=== PATIENT | female | born 1980 | race Caucasian/White ===

== ENCOUNTER 2017-05-16 10:42 | Emergency (ER) | payer OTHER ==
[~2017-05-16] VITALS: Ht 175.3 cm; Wt 66.7 kg
[~2017-05-16 10:42] MED LIST: ALBIPROI; ALBU90OI61 INH; AMIT10; AMYLIPPROE PO; BELPHEELB; BUSP15 PO; BUSP5 PO; Bactrim Ds Tab1 EACH PO; CARB200 PO; CEPH250A PO; CEPH500 PO; CHLO10; CHLO10 PO; CIPR500 PO; CITA20 PO; CLIN300 PO; CODACE30 PO; DICY20 PO; DIPATR PO; DIPH50 PO; FAMO20 PO; FAMO40 PO; FENUGREEK; HYCOSAMINE; HYDACE5 PO; HYDCOR10; HYOS.125 SL; HYOSCYAMIN; LORA1 PO; LORA2; MEDR10; MEDR10 PO; METERG.2 PO; METH10; MICRONOR; MILK THISTLE; MULVITMINE; MULVITMINE PO; NAPR220 PO; NAPR500; NAPR500 PO; NAPR550 PO; NORT10 PO; OMEP20ER PO; OXYACE5T PO; OXYACE7.5T PO; OXYB5; PANCREATIC ENZYME; PENNAL50 PO; PREVPAC PO; PROM25; PROM25 PO; PROM25S PR; PROM50S PR; PROM6.25SY PO; Percocet 10-321 EACH PO; Percocet 5-3251 EACH PO; QUET200; QUET25; RABE20; RANI150; RANI150 PO; RIFA300 PO; RXDIPATR PO; RXHYDACE PO; RXNAPNA550 PO; RXOXYACE PO; RXPROM25; RXPROM25 PO; RXSULTRIDS PO; RXTRAM50 PO; Roxicodone5 MG PO; SENN187; SERT50; SILSUL1TC TOP; SULTRIDS PO; TOMAZAPAM; TRAM50 PO; TRIM250 PO; [UNRECOGNIZED DRUG - OTHER]; [UNRECOGNIZED DRUG - OTHER]; [UNRECOGNIZED DRUG - OTHER]; [UNRECOGNIZED DRUG - OTHER] PO
[2017-05-16 11:29] LABS: BASOPHILS ABSOLUTE AUTO 0.04 K/mm3 (0.00-0.23); BASOPHILS PERCENT AUTO 1 % (0-2); EOSINOPHILS ABSOLUTE AUTO 0.24 K/mm3 (0.00-0.68); EOSINOPHILS PERCENT AUTO 3 % (0-6); Hemoglobin 13.4 g/dL (11.5-16.0); IMMATURE GRAN ABSOLUTE AUTO 0.01 K/mm3 (0.00-0.10); IMMATURE GRAN PERCENT AUTO 0 % (0-1); LYMPHOCYTES ABSOLUTE AUTO 2.39 K/mm3 (0.84-5.20); LYMPHOCYTES PERCENT AUTO 33 % (21-46); MONOCYTES ABSOLUTE AUTO 0.56 K/mm3 (0.16-1.47); MONOCYTES PERCENT AUTO 8 % (4-13); Mean Corpuscular HGB 30.9 pg (26.0-34.0); Mean Corpuscular HGB Conc 33.5 g/dL (31.5-36.5); Mean Corpuscular Volume 92 fL (80-100); Mean Platelet Volume 10.4 fL (9.1-12.4); NEUTROPHILS ABSOLUTE AUTO 4.01 K/mm3 (1.96-9.15); NEUTROPHILS PERCENT AUTO 55 % (41-73); Platelet Count 268 K/mm3 (150-400); RDW Coefficient Variation 12.5 % (11.7-14.2); RDW Standard Deviation 42.7 fL (35.1-46.3); Red Blood Cell Count 4.33 M/mm3 (3.80-5.20); White Blood Cell Count 7.25 K/mm3 (4.00-11.30)
[2017-05-16 11:55] LABS: Alanine Aminotransfer (ALT/SGP 90 U/L (12-78); Albumin, Blood 3.6 g/dL (3.4-5.0); Albumin/Globulin Ratio 0.9 (0.8-1.8); Alk Phos 67 U/L (50-136); Anion Gap 6 mmol/L (6-16); Aspartate Aminotrans (AST/SGOT 74 U/L (12-37); Bilirubin, Total 0.4 mg/dL (0.1-1.0); Blood Urea Nitrogen 6 mg/dL (8-24); CO2, Blood 29 mmol/L (21-32); Calcium, Blood 8.4 mg/dL (8.5-10.1); Chloride, Blood 103 mmol/L (98-108); Creatinine, Blood 0.67 mg/dL (0.40-1.00); Globulin, Blood 3.9 g/dL (2.2-4.0); Glomerular Filtration Rate >60 (60-); Glucose, Blood 74 mg/dL (70-99); Potassium, Blood 4.2 mmol/L (3.5-5.5); Sodium, Blood 138 mmol/L (136-145); Total Protein, Blood 7.5 g/dL (6.4-8.2)
[2017-05-16 13:18] LABS: U Amphetamine Screen Not Detected; U Barbituate Screen Not Detected; U Benzodiazapine Screen Not Detected; U Buprenorphine Screen Not Detected; U Cannabinoids Screen Not Detected; U Cocaine Screen Not Detected; U Methadone Screen DETECTED; U Methamphetamine Screen Not Detected; U Opiates Screen Not Detected; U Oxycodone Screen Not Detected; U Phencyclidine Screen Not Detected; U Propoxyphene Screen Not Detected
[2017-05-16] MEDS ORDERED: Norco 5-325 Ta1 EACH PO (15:17)
== END 2017-05-16 15:24 | disposition home or self-care (01) ==
LOC: ER 10:42
PROVIDERS: Emergency Medicine
DX: N83.202 Unspecified ovarian cyst, left side (principal); F17.200 Nicotine dependence, unspecified, uncomplicated; Z86.19 Personal history of other infectious and parasitic diseases; Z88.6 Allergy status to analgesic agent; Z88.8 Allergy status to other drugs, medicaments and biological substances; Z79.899 Other long term (current) drug therapy
CPT/HCPCS: 36415; 74177; 76830; 80053; 81000; 83690; 84703; 85025; 96374; 99284; J1885; Q9967

== ENCOUNTER 2017-06-10 10:37 | Day surgery (SDC) | payer OTHER ==
[~2017-06-10] VITALS: Ht 172.7 cm; Wt 67.0 kg
[~2017-06-10 10:37] MED LIST changes: +Norco 5-325 Ta1 EACH PO
[2017-06-10] MEDS ORDERED: METH40 PO (11:53)
[2017-06-10] MEDS ORDERED: Advair Hfa 230-12 GM (11:54)
[2017-06-10] MEDS ORDERED: COMBIVENT RESPIM4 GM INH (11:54)
== END 2017-06-10 16:05 | disposition home or self-care (01) ==
LOC: ORSCSDS 10:37
PROVIDERS: Obstetrics & Gynecology
PROC: 0U5F4ZZ Destruction of Cul-de-sac, Percutaneous Endoscopic Approach (ICD-10-PCS; principal; 2017-06-10 12:30)
DX: R10.2 Pelvic and perineal pain (principal); N80.3 Endometriosis of pelvic peritoneum; N73.6 Female pelvic peritoneal adhesions (postinfective); B19.20 Unspecified viral hepatitis C without hepatic coma; F17.210 Nicotine dependence, cigarettes, uncomplicated; Z79.899 Other long term (current) drug therapy
CPT/HCPCS: J0171; J0690; J3010; J7120

== ENCOUNTER 2017-06-25 14:06 | Emergency (ER) | payer OTHER ==
[~2017-06-25 14:06] MED LIST changes: +Advair Hfa 230-12 GM; +COMBIVENT RESPIM4 GM INH; +METH40 PO
== END 2017-06-25 14:14 | disposition left against medical advice (07) ==
LOC: ER 14:06
DX: Z53.21 Procedure and treatment not carried out due to patient leaving prior to being seen by health care provider (principal)

== ENCOUNTER → 2017-07-30 | Outpatient (CLI) | payer OTHER ==
[2017-08-11 10:19] LABS: Result SEE LABOUT RESULTS; Test Name FAT QUAL
== END | disposition home or self-care (01) ==
LOC: LAB SHORT 13:34 → LAB 13:34
PROVIDERS: Physician Assistant
DX: R10.84 Generalized abdominal pain (principal); E16.8 Other specified disorders of pancreatic internal secretion
CPT/HCPCS: 82705

== ENCOUNTER 2018-08-08 17:01 | Emergency (ER) | payer OTHER ==
[~2018-08-08] VITALS: Ht 175.3 cm; Wt 73.9 kg
[2018-08-08 18:41] LABS: BASOPHILS ABSOLUTE AUTO 0.03 K/mm3 (0.00-0.23); BASOPHILS PERCENT AUTO 0 % (0-2); Hematocrit 34.3 % (33.0-51.0); Hemoglobin 10.2 g/dL (11.5-16.0); Mean Corpuscular HGB 21.8 pg (26.0-34.0); Mean Corpuscular HGB Conc 29.7 g/dL (31.5-36.5); Mean Corpuscular Volume 73 fL (80-100); NRBC ABSOLUTE 0.02 K/mm3 (0.00-0.02); NRBC Auto 0.2 /100 WBC (0.0-0.2); RDW Coefficient Variation 17.7 % (11.7-14.2); RDW Standard Deviation 46.5 fL (35.1-46.3); Red Blood Cell Count 4.68 M/mm3 (3.80-5.20); White Blood Cell Count 8.64 K/mm3 (4.00-11.30)
[2018-08-08 18:45] LABS: EOSINOPHILS ABSOLUTE AUTO 0.01 K/mm3 (0.00-0.68); EOSINOPHILS PERCENT AUTO 0 % (0-6); IMMATURE GRAN ABSOLUTE AUTO 0.02 K/mm3 (0.00-0.10); IMMATURE GRAN PERCENT AUTO 0 % (0-1); LYMPHOCYTES ABSOLUTE AUTO 0.11 K/mm3 (0.84-5.20); LYMPHOCYTES PERCENT AUTO 1 % (21-46); MONOCYTES ABSOLUTE AUTO 0.06 K/mm3 (0.16-1.47); MONOCYTES PERCENT AUTO 1 % (4-13); Mean Platelet Volume 10.8 fL (9.1-12.4); NEUTROPHILS ABSOLUTE AUTO 8.41 K/mm3 (1.96-9.15); NEUTROPHILS PERCENT AUTO 97 % (41-73); Platelet Count 259 K/mm3 (150-400)
[2018-08-08 18:53] LABS: Alanine Aminotransfer (ALT/SGP 89 U/L (12-78); Albumin, Blood 3.1 g/dL (3.4-5.0); Albumin/Globulin Ratio 0.9 (0.8-1.8); Alk Phos 113 U/L (50-136); Anion Gap 9 mmol/L (6-16); Aspartate Aminotrans (AST/SGOT 227 U/L (12-37); Bilirubin, Total 2.2 mg/dL (0.1-1.0); Blood Urea Nitrogen 12 mg/dL (8-24); Bun/Creatinine Ratio 12.6 (12.0-20.0); CO2, Blood 22 mmol/L (21-32); Calcium, Blood 8.8 mg/dL (8.5-10.1); Chloride, Blood 106 mmol/L (98-108); Creatinine, Blood 0.95 mg/dL (0.40-1.00); Globulin, Blood 3.3 g/dL (2.2-4.0); Glomerular Filtration Rate >60 (60-); Glucose, Blood 115 mg/dL (70-99); Potassium, Blood 3.5 mmol/L (3.5-5.5); Sodium, Blood 137 mmol/L (136-145); Total Protein, Blood 6.4 g/dL (6.4-8.2)
[2018-08-08 19:49] LABS: Source, Urine Clean Catch
[2018-08-08 19:56] LABS: Appearance, Urine Cloudy (Clear); Blood, Urine 5+ (Neg); Color, Urine Amber (P-Yellow); Glucose Qualitative, Urine Neg (Neg); Ketones, Urine Neg (Neg); Leukocyte Esterase, Urine 2+ (Neg); Nitrite, Urine Pos (Neg); Protein, Urine 3+ (Neg); Specific Gravity, Urine 1.015 (1.003-1.022); Urobilinogen, Urine 1+ (Normal)
[2018-08-08 19:57] LABS: Bilirubin, Urine 1+ (Neg)
[2018-08-08 20:06] LABS: Bacteria Many /hpf; Red Blood Cells, Urine TNTC /hpf (0-2); Squamous Epithelial Cells Mod /hpf (Few)
[2018-08-08] MEDS ORDERED: CEPH500 PO (20:29)
[2018-08-08] MEDS ORDERED: COMPAZINE10 MG PO (20:29)
== END 2018-08-08 21:49 | disposition home or self-care (01) ==
LOC: ER 17:01
PROVIDERS: Emergency Medicine
DX: N39.0 Urinary tract infection, site not specified (principal); F17.210 Nicotine dependence, cigarettes, uncomplicated
CPT/HCPCS: 36415; 74176; 80053; 81001; 83690; 84703; 85025; 87077; 87086; 87186; 96361; 96374; 96375; 96376; 99284-25; J0780; J1200; J7030

== ENCOUNTER 2018-09-25 08:23 | Emergency (ER) | payer OTHER ==
[~2018-09-25] VITALS: Ht 172.7 cm; Wt 74.8 kg
[~2018-09-25 08:23] MED LIST changes: +ALBU3IS INH; -Advair Hfa 230-12 GM; +Advair Hfa 230-12 GM INH; +COMPAZINE10 MG PO; -NORT10 PO; +NORT25 PO; +Silvadene20 GM TOP; +ZENPEP DR 5,001 EAC1 PO
[2018-09-25] MEDS ORDERED: Catapres-Tts 21 EACH TOP (08:42)
== END 2018-09-25 09:05 | disposition home or self-care (01) ==
LOC: ER 08:23
DX: F11.23 Opioid dependence with withdrawal (principal); J45.909 Unspecified asthma, uncomplicated; K70.10 Alcoholic hepatitis without ascites; F39 Unspecified mood [affective] disorder; F17.200 Nicotine dependence, unspecified, uncomplicated; Z86.19 Personal history of other infectious and parasitic diseases; Z88.0 Allergy status to penicillin; Z88.5 Allergy status to narcotic agent; Z88.8 Allergy status to other drugs, medicaments and biological substances; Z79.899 Other long term (current) drug therapy
CPT/HCPCS: 99284

== ENCOUNTER 2024-04-20 10:34 | Emergency (ER) | payer OTHER ==
[~2024-04-20] VITALS: Ht 162.6 cm; Wt 54.4 kg
[~2024-04-20 10:34] MED LIST changes: +Catapres-Tts 21 EACH TOP
[2024-04-20 10:55] VITALS: BP 128/89
== END 2024-04-20 11:43 | disposition home or self-care (01) ==
LOC: ER 10:34
DX: Z76.89 Persons encountering health services in other specified circumstances (principal); F11.20 Opioid dependence, uncomplicated; J45.909 Unspecified asthma, uncomplicated; F17.210 Nicotine dependence, cigarettes, uncomplicated; Z88.0 Allergy status to penicillin; Z88.5 Allergy status to narcotic agent; Z88.8 Allergy status to other drugs, medicaments and biological substances; Z79.899 Other long term (current) drug therapy; Z59.89 Other problems related to housing and economic circumstances
CPT/HCPCS: 99283

== ENCOUNTER 2025-02-03 19:39 | Inpatient (IN) | payer OTHER ==
[~2025-02-03] VITALS: Ht 170.2 cm; Wt 54.8 kg
[2025-02-03 21:10] LABS: BASOPHILS ABSOLUTE AUTO 0.02 K/mm3 (0.00-0.23); BASOPHILS PERCENT AUTO 0 % (0-2); EOSINOPHILS ABSOLUTE AUTO 0.00 K/mm3 (0.00-0.68); EOSINOPHILS PERCENT AUTO 0 % (0-6); Hematocrit 40.8 % (33.0-51.0); Hemoglobin 14.2 g/dL (11.5-16.0); IMMATURE GRAN ABSOLUTE AUTO 0.05 K/mm3 (0.00-0.10); IMMATURE GRAN PERCENT AUTO 0 % (0-1); LYMPHOCYTES ABSOLUTE AUTO 1.43 K/mm3 (0.84-5.20); LYMPHOCYTES PERCENT AUTO 11 % (21-46); MONOCYTES ABSOLUTE AUTO 0.93 K/mm3 (0.16-1.47); MONOCYTES PERCENT AUTO 7 % (4-13); Mean Corpuscular HGB Conc 34.8 g/dL (31.5-36.5); Mean Corpuscular Volume 86 fL (80-100); NEUTROPHILS ABSOLUTE AUTO 10.09 K/mm3 (1.96-9.15); NEUTROPHILS PERCENT AUTO 81 % (41-73); NRBC ABSOLUTE 0.00 K/mm3 (0.00-0.02); NRBC Auto 0.0 /100 WBC (0.0-0.2); Platelet Count 261 K/mm3 (150-400); RDW Coefficient Variation 12.3 % (11.7-14.2); RDW Standard Deviation 38.0 fL (35.1-46.3)
[2025-02-03] MEDS ORDERED: Ketorolac Tromethamine 15mg Vial IV ONE (21:35)
[2025-02-03 21:40] LABS: Alanine Aminotransfer (ALT/SGP 62.0 U/L (12-78); Albumin, Blood 4.0 g/dL (3.4-5.0); Albumin/Globulin Ratio 0.9 (0.8-1.8); Anion Gap 8.0 mmol/L (3-11); Aspartate Aminotrans (AST/SGOT 59.0 U/L (12-37); Bilirubin, Total 1.7 mg/dL (0.1-1.0); Blood Urea Nitrogen 12.0 mg/dL (8-24); CO2, Blood 27.0 mmol/L (21-32); Calcium, Blood 9.8 mg/dL (8.5-10.1); Chloride, Blood 98.0 mmol/L (98-108); Creatinine, Blood 0.56 mg/dL (0.40-1.00); Globulin, Blood 4.7 g/dL (2.2-4.0); Glucose, Blood 126.0 mg/dL (70-99); Potassium, Blood 5.5 mmol/L (3.5-5.5); Sodium, Blood 127.0 mmol/L (136-145); Total Protein, Blood 8.7 g/dL (6.4-8.2)
[2025-02-03] MEDS ORDERED: Vancomycin (Pharmacy Consult) IV PRN (22:05)
[2025-02-03] MEDS ORDERED: CefTRIAXone Sodium 2,000 MG in NS 100 ML IV ONE (22:10)
[2025-02-03] MEDS ORDERED: FLU VACC TS2025-26(6MOS UP)/PF 45 MCG/0.5 ML SYRINGE IM ONE (22:35)
[2025-02-03] MEDS ORDERED: HYDROcodone 5-APAP 325 TAB PO ONE (22:40)
[2025-02-03] MEDS ORDERED: Vancomycin (Pharmacy Consult) IV SCH (22:55)
[2025-02-04 00:06] VITALS: BP 133/90
[2025-02-04] MEDS ORDERED: Metoclopramide HCl 5MG / ML 2ML Vial IV PRN (00:30)
[2025-02-04] MEDS ORDERED: FentaNYL Citrate 50 MCG/ML 2 ML Injection IV PRN (00:30)
--- NOTE | 2025-02-04 01:04 | NUR ---
TRANSFER NOTE: PT AOX4, TRANSFERRED SELF FROM [facility] TO BED. PLEASANT AND FOLLOWS COMMANDS. ADMITS TO SMOKING FENTANYL DAILY. COMPLAINING OF PAIN, AND NAUSEA, PROVIDER NOTIFIED. CELLULITIS ON ARM IS MARKED SOME RAISED SPOTS. PT ORIENTED TO ROOM AND CALL LIGHT. IN BED, BED IN LOWEST POSITION, CALL LIGHT IN REACH. CONTINUING CARE.
[2025-02-04 04:03] VITALS: BP 136/102
--- NOTE | 2025-02-04 04:51 | NUR ---
SHIFT SUMMARY: PT AOX4, IND IN THE ROOM. PT CALLS APPROPRAITELY AND ABLE TO MAKE NEEDS KNOWN. PT WAS PLEASANT AND COOPERATIVE ON ADMISSION, BUT ONCE SHE FELL ASLEEP IS AROUSABLE, BUT VERY IRRITABLE AND HESITENT TO COOPERATE. REFUSED TO INTERACT WITH MD WHO ATTEMPTED TO DO AN ASSESSMENT. PT COMPLAINED OF "FENTANYL WITHDRAWLS" SINCE SHE IS AN EVERYDAY USER OTHERWISE, WELL PAIN, AND NAUSEA. PROVIDER NOTIFIED, AND MEDICATED PER EMR. PT TOLERATING MEDICATIONS WELL, BED IN LOWEST POSITION, CALL LIGHT IN REACH. CONTINUING CARE.
[2025-02-04 08:33] VITALS: BP 134/98
[2025-02-04] MEDS ORDERED: Enoxaparin 40 MG/0.4 ML SYR SC SCH (09:00)
--- NOTE | 2025-02-04 11:02 | NUR ---
0845 patient called nurse to room, patient wants to leave [facility], provider notified. 0850 2 right arm iv's removed. 0855 patient left [facility] after refusing hard prescription for antibiotics from provider.
[2025-02-04] MEDS ORDERED: CefTRIAXone Sodium 1,000 MG in NS 100 ML IV SCH (21:00)
== END 2025-02-04 09:00 | disposition left against medical advice (07) | DRG 603 ==
LOC: ER 19:39 → MEDS 22:07
PROVIDERS: Student in an Organized Health Care Education/Training Program; ADMIT Internal Medicine
DX: L03.114 Cellulitis of left upper limb (principal); E87.1 Hypo-osmolality and hyponatremia; S40.862A Insect bite (nonvenomous) of left upper arm, initial encounter; W57.XXXA Bitten or stung by nonvenomous insect and other nonvenomous arthropods, initial encounter; F19.10 Other psychoactive substance abuse, uncomplicated; J45.909 Unspecified asthma, uncomplicated; F17.210 Nicotine dependence, cigarettes, uncomplicated; Z53.29 Procedure and treatment not carried out because of patient's decision for other reasons; Z86.19 Personal history of other infectious and parasitic diseases; Z88.8 Allergy status to other drugs, medicaments and biological substances; Z88.0 Allergy status to penicillin; Z88.5 Allergy status to narcotic agent; Z79.51 Long term (current) use of inhaled steroids
CPT/HCPCS: 71046; 80053; 83605; 85025; 87040; 96374; 99284-25; A9270; J0696; J1885; J2765; J3010; J3373; J7050

== ENCOUNTER 2025-02-05 21:06 | Emergency (ER) | payer OTHER ==
[~2025-02-05] VITALS: Ht 175.3 cm; Wt 61.2 kg
[2025-02-05 21:24] VITALS: BP 127/98
== END 2025-02-05 21:28 | disposition left against medical advice (07) ==
LOC: ER 21:06
DX: L03.115 Cellulitis of right lower limb (principal); Z53.29 Procedure and treatment not carried out because of patient's decision for other reasons; Z88.8 Allergy status to other drugs, medicaments and biological substances; J45.909 Unspecified asthma, uncomplicated; F17.210 Nicotine dependence, cigarettes, uncomplicated
CPT/HCPCS: 99283